=== PATIENT | female | born 1955 | race Caucasian/White ===

== ENCOUNTER → 2019-04-09 06:38 | Outpatient (CLI) | payer BC, SELFPAY ==
--- NOTE | 2019-04-09 10:24 | NEURO ---
NCS and/or EMG Patient Report Ordering Doctor: China Dickson DATE OF SERVICE: 04/09/19 Chely Valerio is a 64-year-old female presents for electrodiagnostic testing of the left lower limb. She reports numbness in the posterior and lateral aspect of the left leg. Electrodiagnostic findings: Left peroneal motor nerve demonstrates normal distal latency, amplitude and conduction velocity. Normal left tibial motor response. Normal tibial and peroneal F wave. H reflex normal bilaterally. Prolonged left sural latency is noted. Absent left superficial peroneal response. Normal left medial plantar response. On needle EMG, all muscles tested in the left lower limb showed no evidence of denervation with normal motor unit action potentials. Electrodiagnostic impression: This is an abnormal study in the left lower limb. 1. 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 This is consistent with a decreased sensation along the left lateral lower leg. Would give consideration for testing of the right lower limb in order to better evaluate for peripheral polyneuropathy. 2. There is no electrodiagnostic evidence for lumbosacral radiculopathy. If there are any further questions, please do not hesitate to contact me
== END ==
PROVIDERS: Family Provider Physician Assistant; PCP Physician Assistant; Referring Provider Physician Assistant; Visit Provider Physician Assistant
DX: R20.0 Anesthesia of skin (principal)
CPT/HCPCS: 95886; 95910

== ENCOUNTER → 2024-04-01 | Outpatient (CLI) | payer BC, SELFPAY ==
--- NOTE | 2024-04-01 16:27 | RAD_ITS ---
STUDY: X-RAY - CERVICAL SPINE REASON FOR EXAM: Female, 69 years old. CERVICAL RADICULOPATHY/CERV LUMBAR SPOND TECHNIQUE: 5 view(s) of the cervical spine were obtained. COMPARISON: None FINDINGS: There are degenerative changes of the anterior atlantoaxial articulation. Normal odontoid process. Normal cervical lordosis. There is multi-level endplate spondylosis. There is multi-level degenerative disc disease with multilevel disc space narrowing. Normal visualized intervertebral neuroforamina. The soft tissue structures are unremarkable. RAD/Cerv Spine 4 or 5 Views IMPRESSION: Multilevel disc space narrowing and spondylosis. Electronically Signed: Rocky Holt MD at 8:39 EDT ,
--- NOTE | 2024-04-01 16:27 | RAD_ITS ---
STUDY: X-RAY - LUMBAR SPINE REASON FOR EXAM: Female, 69 years old. CERV RADICULOPATHY/CERV AND LUMBAR SPOND TECHNIQUE: 3 view(s) of the lumbar spine were obtained. COMPARISON: None FINDINGS: Normal lumbar lordosis. There is a marked levoscoliosis of the lumbar spine. There is a normal alignment of the vertebrae. There is diffuse demineralization with multi-level endplate spondylosis. There is multi-level degenerative disc disease with multi-level disc space narrowing. Facet joint osteoarthritis. The soft tissue structures are unremarkable. RAD/Lumbar Spine 2 or 3 Views IMPRESSION: Degenerative changes of the spine, as detailed above. Marked degree of levoscoliosis. Electronically Signed: Rocky Holt MD at 8:39 EDT ,
== END | disposition home or self-care (01) ==
PROVIDERS: PCP Physician Assistant; Referring Provider Anesthesiology; Visit Provider Anesthesiology
DX: M54.12 Radiculopathy, cervical region (principal); M47.812 Spondylosis without myelopathy or radiculopathy, cervical region; M47.816 Spondylosis without myelopathy or radiculopathy, lumbar region
CPT/HCPCS: 72050; 72100

== ENCOUNTER → 2024-05-05 | Outpatient (CLI) | payer BC, SELFPAY ==
--- NOTE | 2024-05-05 16:18 | MRI_ITS ---
EXAM: MR CERVICAL SPINE WITHOUT INTRAVENOUS CONTRAST CLINICAL INDICATION: RADICULOPATHY, SPONYLOSIS, NECK PAIN/HEADACHES X 5 WEEKS TECHNIQUE: Multiplanar and multisequence MR images of the cervical spine without intravenous contrast were performed. COMPARISON: Cervical spine radiographs, 04/01/2024. FINDINGS: VERTEBRAE: Localization/counting sequences reveal degenerative changes mostly in the lumbar spine with apparent scoliotic curvature and overall indeterminate degree of multilevel spinal canal and neural foraminal stenosis in the lumbar region. Multilevel facet, uncovertebral joint, and endplate osteophytosis. Straightening of the expected cervical lordosis. Aside from degenerative changes, normal craniocervical junction and cervicothoracic junction. No spondylolisthesis. SPINAL CORD: No critical mass effect upon the spinal cord at discrete spinal cord signal abnormality is identified throughout the [id number]. SOFT TISSUES: No significant abnormality. No prevertebral soft tissue swelling. LYMPH NODES: No significant abnormality. There is no cervical adenopathy. DISCS/SPINAL CANAL/NEURAL FORAMINA: C2-C3: Bilateral facet arthrosis and mild disc bulge. Mild spinal canal stenosis. No significant neural foraminal narrowing. C3-C4: Moderate bilateral facet arthrosis and disc bulge and small superimposed central disc herniation. Mild spinal canal stenosis and mild bilateral neural foraminal narrowing. C4-C5: Disc height loss and disc desiccation. Right central to foraminal disc herniation and moderate facet and uncovertebral joint arthrosis. Moderate spinal canal stenosis and moderate bilateral neural foraminal narrowing, right greater than left. Right C5 nerve root impingement. C5-C6: Disc height loss and disc desiccation. Central disc herniation superimposed upon a disc bulge and moderate bilateral facet arthrosis. Moderate spinal canal and bilateral neural foraminal narrowing. C6-C7: Disc height loss and disc desiccation. Central disc herniation superimposed upon a disc bulge and mild to moderate bilateral facet and uncovertebral joint arthrosis. Mild spinal canal stenosis and [id number] bilateral neural foraminal narrowing. C7-T1: Mild bilateral facet arthrosis and very mild disc bulge. No disc herniation, spinal canal stenosis, or neural foraminal narrowing. MRI/Spine Cervical (Routine) IMPRESSION: 1. Multilevel degenerative changes resulting in [id number] multilevel spinal canal and neural foraminal stenosis. Right C5 nerve root impingement at C4-C5. Correlate for associated symptoms. No spinal cord signal abnormality. 2. Localization/counting sequences reveal degenerative changes mostly in the lumbar spine with apparent scoliotic curvature and overall indeterminate degree of multilevel spinal canal and neural foraminal stenosis in the lumbar region. Consider follow-up lumbar spine MRI of clinically indicated. Electronically Signed: Jovon Chavira DO at 0:01 EDT ,
== END | disposition home or self-care (01) ==
PROVIDERS: PCP Physician Assistant; Referring Provider Anesthesiology; Visit Provider Anesthesiology
DX: M54.12 Radiculopathy, cervical region (principal); M43.02 Spondylolysis, cervical region
CPT/HCPCS: 72141